=== PATIENT | female | born 1950 | race Two or more races ===

== ENCOUNTER 2024-03-23 11:38 | Emergency (ER) | payer OTHER ==
[~2024-03-23] VITALS: Ht 154.9 cm; Wt 85.7 kg
[2024-03-23] MEDS ORDERED: MOUNJARO5 MG/0.5 M SQ (12:42)
[2024-03-23] MEDS ORDERED: ORPHENADRINE CITRATE 100 MG TABLET PO ONE (14:45)
[2024-03-23] MEDS ORDERED: KETOROLAC TROMETHAMINE 60 MG VIAL IM ONE ×2 (14:45→15:14)
== END 2024-03-23 18:09 | disposition home or self-care (01) ==
LOC: ER 11:40
DX: Z91.018 Allergy to other foods (principal); M54.2 Cervicalgia
CPT/HCPCS: 72040; 72100; 96372; 99283; J1885